=== PATIENT | female | born 1985 | race Caucasian/White ===

== ENCOUNTER 2016-03-16 10:13 | Inpatient (IN) | payer OTHER ==
--- NOTE | 2016-03-16 14:15 | HP ---
COWS - Scale Resting Pulse: 2= ND 101-120 Sweatin= Chills/Flushing Restless Observation: 3= Extraneous Movement Pupil Size: 2= Moderately Dilated Bone or Joint Aches: 4=Acute Joint/Muscle Pain Runny Nose/ Eye Tearin= Nasal Congestion GI Upset > 30mins: 2= Nausea/Diarrhea Tremor Observation: 2= Slight Tremor Visible Yawning Observation: 2= >3x During Session Anxiety or Irritability: 2=Irritable/Anxious Goose Flesh Skin: 0=Smooth Skin COWS Score: 21 Admission ROS BHS - HPI Chief Complaint: DETOX TX FOR HEROIN AND COCAINE DEPENDENCE. Allergies/Adverse Reactions: Allergies Allergy/AdvReac Type Severity Reaction Status Date / Time No Known Allergies Allergy Verified 03/16/16 12:50 History of Present Illness: 30 Y/O FEMALE WITH A HX OF HEROIN AND CRACK DEPENDENCE SEEKING DETOX TX Exam Limitations: No Limitations - Ebola screening Have you traveled outside of the country in the last 21 days: No Have you had contact with anyone from an Ebola affected area: No Have you been sick,other than usual withdrawal symptoms: No Do you have a fever: No - Review of Systems Constitutional: Chills, Loss of Appetite, Night Sweats, Changes in sleep, Unintentional Wgt. Loss EENT: reports: Blurred Vision (WEARS GLASSES), Tearing, Nose Congestion Respiratory: reports: No Symptoms reported Cardiac: reports: Lightheadedness GI: reports: Constipated, Nausea, Poor Appetite, Poor Fluid Intake, Vomiting, Abdominal cramping : reports: Dysuria Musculoskeletal: reports: Back Pain, Joint Pain, Muscle Pain Integumentary: reports: Lesions (FACIAL AND HAND WHEN USING COCAINE.) Neuro: reports: Headache, Dizziness Endocrine: reports: No Symptoms Reported Hematology: reports: No Symptoms Reported Psychiatric: reports: Orientated x3, Anxious, Depressed Other Systems: Reviewed and Negative Patient History - Patient Medical History Hx Anemia: No Hx Asthma: No Hx Chronic Obstructive Pulmonary Disease (COPD): No Hx Cardiac Disorders: No Hx Hypertension: No HX Cerebrovascular Accident: No Hx Seizures: No Hx Diabetes: No Hx Gastrointestinal Disorders: No Hx Genitourinary Disorders: No Hx Sexually Transmitted Disorders: No Hx Renal Disease (ESRD): No Hx Thyroid Disease: No Hx Human Immunodeficiency Virus (HIV): No (NEGATIVE HX) Hx Hepatitis C: No Hx Depression: Yes Hx Suicide Attempt: Yes (Tried to cut wrist in 2013;DENIES CURRENT S/I) Hx Schizophrenia: No - Patient Surgical History Past Surgical History: Yes Hx Neurologic Surgery: No Hx Cataract Extraction: No Hx Cardiac Surgery: No Hx Lung Surgery: No Hx Breast Surgery: No Hx Breast Biopsy: No Hx Abdominal Surgery: No Hx Appendectomy: No Hx Cholecystectomy: No Hx Genitourinary Surgery: No Hx Section: No Hx Orthopedic Surgery: No Hx Hysterectomy: No Other Surgical History: Tonsillectomy at 2005 R inguinal hernia repair as an infant Anesthesia Reaction: No - PPD History Previous Implant?: Yes Documented Results: Negative w/o proof Implanted On Prior [facility] Admission?: No Results: TBD PPD to be Administered?: Yes - Reproductive History Patient is a Female of Child Bearing Age (11 -55 yrs old): Yes Last Menstrual Period: 03/13/16 Patient : No - Smoking Cessation Smoking history: Current every day smoker Have you smoked in the past 12 months: Yes Aproximately how many cigarettes per day: 20 Hx Chewing Tobacco Use: No Initiated information on smoking cessation: Yes 'Breaking Loose' booklet given: 03/16/16 - Substance & Tx. History Hx Alcohol Use: No (DENIES) Hx Substance Use: Yes (HEROIN/COCAINE) Substance Use Type: Cocaine, Heroin Hx Substance Use Treatment: Yes ([place], [place]) - Substances Abused Heroin Route: Injection Frequency: Daily Amount used: 2-10 BAGS Age of first use: 16 Date of Last Use: 03/15/16 Crack Route: Smoking Frequency: Daily Amount used: $80 Age of first use: 30 Date of Last Use: 03/15/16 Family Disease History - Family Disease History Family Disease History: Diabetes: Grandparent (PATERNAL GF-), Heart Disease: Brother (ARRYTHMIA) Admission Physical Exam BHS - Vital Signs Vital Signs: Vital Signs - 24 hr 03/16/16 10:57 Temperature 97.8 F Pulse Rate 118 H Respiratory 18 Rate Blood Pressure 106/66 - Physical General Appearance: Yes: Moderate Distress, Irritable, Anxious HEENTM: Yes: EOMI, Normocephalic, KORIN, Nasal Congestion, Rhinorrhea Respiratory: Yes: Chest Non-Tender, Lungs Clear, Normal Breath Sounds, No Respiratory Distress Neck: Yes: Supple, Trachea in good position Breast: Yes: Breast Exam Deferred Cardiology: Yes: Regular Rhythm, Regular Rate, S1, S2 Abdominal: Yes: Normal Bowel Sounds, Non Tender, Flat, Soft Genitourinary: Yes: Other (N/C) Back: Yes: Within Normal Limits Musculoskeletal: Yes: full range of Motion, Gait Steady Extremities: Yes: Normal Range of Motion, Non-Tender, Tremors 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: 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: 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 NML intact, Fully Oriented, Alert Integumentary: Yes: Dry, Warm, Rash (FACE HANDS--PICKING DUE TO COCAINE RASH ERUPTIONS.), Track Lopes (BOTH ELBOWS) Lymphatic: Yes: Within Normal Limits - Diagnostic (1) Opioid dependence with withdrawal Current Visit: Yes Status: Acute (2) Cocaine dependence, uncomplicated Current Visit: Yes Status: Acute (3) Rash and nonspecific skin eruption Current Visit: Yes Status: Deleted Comment: FACE AND HAND PICKING AFTER COCAINE USE RASH ERUPTION Cleared for Admission [facility] - Detox or Rehab [facility] Level of Care: Medically Managed Detox Regimen/Protocol: Methadone [facility] Breath Alcohol Content Breath Alcohol Content: 0 Urine Pregancy Test - Result Urine Test Results: Negative- NO Line Present Urine Drug Screen - Results Drug Screen Negative: No Urine Drug Screen Results: THC-Marijuana, YOLA-Cocaine, OPI-Opiates
[2016-03-16] MEDS ORDERED: LOPERAMIDE HCL 2 MG CAPSULE PO PRN (14:32)
[2016-03-16] MEDS ORDERED: MAGNESIUM CITRATE 300 ML BOTTLE PO PRN (14:32)
[2016-03-16] MEDS ORDERED: MAG HYDROX/AL HYDROX/SIMETH 30 ML UNIT-DOSE CUP PO PRN (14:32)
[2016-03-16] MEDS ORDERED: P-EPHED 60MG/TRIPROLIDI 2.5MG TABLET PO PRN (14:32)
[2016-03-16] MEDS ORDERED: NICOTINE POLACRILEX 4 MG GUM BUC PRN (14:32)
[2016-03-16] MEDS ORDERED: guaiFENesin/D-METHORPHAN HB 10 ML UNIT-DOSE CUPS PO PRN (14:32)
[2016-03-16] MEDS ORDERED: MAGNESIUM HYDROX 2400MG/30ML ORAL SUSPENSION 30 ML CUP PO PRN (14:32)
[2016-03-16] MEDS ORDERED: MENTHOL/PHENOL 1 EACH UD MM PRN (14:32)
[2016-03-16] MEDS ORDERED: METHADONE HCL 10 MG TABLET (FOR DETOX USE ONLY) PO ONE ×2 (14:39→23:00)
[2016-03-16] MEDS ORDERED: ACETAMINOPHEN 325 MG TABLET (FP) PO PRN (14:41)
[2016-03-16] MEDS: diazePAM 5 MG TABLET PO PRN ×2 (15:53→20:10)
[2016-03-16] MEDS: NICOTINE 21 MG/24 HOURS TOPICAL PATCH TD SCH (15:56)
[2016-03-16 17:28] LABS: URINE APPEARANCE TURBID; URINE BILIRUBIN NEGATIVE (NEGATIVE); URINE COLOR GREEN; URINE GLUCOSE (UA) NEGATIVE (NEGATIVE); URINE KETONE NEGATIVE (NEGATIVE); URINE LEUK ESTERASE NEGATIVE (NEGATIVE); URINE NITRITE NEGATIVE (NEGATIVE); URINE UROBILINOGEN NEGATIVE E.U./dl (0.2-1.0)
[2016-03-16 17:35] LABS: URINE BLOOD 2+ (NEGATIVE); URINE PROTEIN 2+ (NEGATIVE)
[2016-03-16 17:57] LABS: URINE MUCUS MANY; URINE RBC 18 /hpf (0-3)
[2016-03-16] MEDS: THIAMINE HCL 100 MG TABLET (FP) PO SCH (22:10)
[2016-03-16] MEDS: BACITRACIN 0.9 GM PACKET TP SCH (22:10)
[2016-03-17] MEDS: diazePAM 5 MG TABLET PO PRN ×2 (03:06→10:41)
[2016-03-17] MEDS ORDERED: METHADONE HCL 10 MG TABLET (FOR DETOX USE ONLY) PO ONE (10:00)
[2016-03-17] MEDS: hydrOXYzine PAMOATE 25 MG CAPSULE (FP) PO PRN (10:41)
[2016-03-17] MEDS: BACITRACIN 0.9 GM PACKET TP SCH ×2 (10:41→22:11)
[2016-03-17] MEDS: PRENATAL VITAMINS W/ FOLIC ACID TABLET (FP) PO SCH (10:41)
[2016-03-17] MEDS: NICOTINE 21 MG/24 HOURS TOPICAL PATCH TD SCH (10:42)
[2016-03-17 11:07] LABS: MCH 30.7 pg (25.7-33.7); MCHC 34.2 g/dl (32.0-36.0); MEAN CELL VOLUME 89.9 fl (80-96); PLATELET COUNT 197 K/MM3 (134-434); RDW 13.4 % (11.6-15.6); WHITE BLOOD COUNT 9.2 K/mm3 (4.0-10.0)
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
[2016-03-17 11:39] LABS: ALBUMIN 4.3 g/dl (3.4-5.0); ANION GAP 8 (8-16); BILIRUBIN,TOTAL 0.7 mg/dL (0.2-1.0); CALCIUM 8.8 mg/dL (8.5-10.1); CO2 28 mmol/L (21-32); CREATININE 0.9 mg/dL (0.55-1.02); GLUCOSE,RANDOM 98 mg/dL (74-106); SGOT/AST 17 U/L (15-37); SGPT/ALT 20 U/L (12-78); TOT PROT 7.6 g/dl (6.4-8.2)
[2016-03-17 11:40] LABS: ALK PHOS 43 U/L (45-117)
[2016-03-17 12:13] LABS: HIV 1 & 2 AB NEGATIVE; HIV 1 AGp24 NEGATIVE
--- NOTE | 2016-03-17 12:56 | PN ---
S COWS - Scale Resting Pulse: 1= [place] 81-100 Sweatin= Chills/Flushing Restless Observation: 1= Difficult to Sit Still Pupil Size: 1= Pupils >than Normal Bone or Joint Aches: 2= Severe Diffuse Aches Runny Nose/ Eye Tearin= Nasal Congestion GI Upset > 30mins: 2= Nausea/Diarrhea Tremor Observation of Outstretched Hands: 2= Slight Tremor Visible Yawning Observation: 1= 1-2x During Session Anxiety or Irritability: 2=Irritable/Anxious Goose Flesh Skin: 3=Piloerection COWS Score: 17 BHS Progress Note (SOAP) Subjective: nausea, sweats, interrupte dsleep, anxiety, tremors, goosebumps, would like baclofen for back pain,has prescription Objective: 03/17/16 12:55 Vital Signs - 8 hr 03/17/16 03/17/16 06:18 09:55 Temperature 98.1 F 96.8 F L Pulse Rate 117 H 95 H Respiratory 20 20 Rate Blood Pressure 131/72 114/70 Laboratory Tests 03/16/16 03/17/16 03/17/16 16:00 06:10 06:10 WBC 9.2 RBC 4.52 Hgb 13.9 Hct 40.6 MCV 89.9 MCHC 34.2 RDW 13.4 Plt Count 197 MPV 9.0 Sodium Potassium Chloride Carbon Dioxide Anion Gap BUN Creatinine Creat Clearance w eGFR Random Glucose Calcium Total Bilirubin AST ALT Alkaline Phosphatase Total Protein Albumin Urine Color Green Urine Appearance Turbid Urine pH 8.0 Ur Specific [place] 1.023 Urine Protein 2+ H Urine Glucose (UA) Negative Urine Ketones Negative Urine Blood 2+ H Urine Nitrite Negative Urine Bilirubin Negative Urine Urobilinogen Negative Ur Leukocyte Esterase Negative Urine RBC 18 Urine WBC None Urine Mucus Many HIV 1&2 Antibody Screen Negative HIV P24 Antigen Negative 03/17/16 06:10 WBC RBC Hgb Hct MCV MCHC RDW Plt Count MPV Sodium 141 Potassium 3.3 L Chloride 105 Carbon Dioxide 28 Anion Gap 8 BUN 15 Creatinine 0.9 Creat Clearance w eGFR > 60 Random Glucose 98 Calcium 8.8 Total Bilirubin 0.7 AST 17 ALT 20 Alkaline Phosphatase 43 L Total Protein 7.6 Albumin 4.3 Urine Color Urine Appearance Urine pH Ur Specific [place] Urine Protein Urine Glucose (UA) Urine Ketones Urine Blood Urine Nitrite Urine Bilirubin Urine Urobilinogen Ur Leukocyte Esterase Urine RBC Urine WBC Urine Mucus HIV 1&2 Antibody Screen HIV P24 Antigen hypokalemia Assessment: 03/17/16 12:56 withdrawal sx, back pain, low k, abnormal u/a Plan: cont detox, start baclofen, repeat u/a, supplement k, repeat chem
[2016-03-17] MEDS ORDERED: METHYLPHENIDATE HCL 5 MG TABLET PO SCH (14:00)
[2016-03-17] MEDS: SERTRALINE HCL 50 MG TABLET (FP) PO SCH (14:28)
[2016-03-17] MEDS: GABAPENTIN 300 MG CAPSULE (FP) PO SCH ×2 (14:28→22:12)
[2016-03-17] MEDS: METHYLPHENIDATE HCL 5 MG TABLET PO SCH ×2 (14:28→22:11)
[2016-03-17] MEDS: BACLOFEN 10 MG TABLET (FP) PO SCH ×2 (15:32→22:12)
[2016-03-17 19:01] LABS: URINE APPEARANCE SLCLOUDY; URINE BILIRUBIN NEGATIVE (NEGATIVE); URINE COLOR YELLOW; URINE GLUCOSE (UA) NEGATIVE (NEGATIVE); URINE KETONE TRACE (NEGATIVE); URINE NITRITE NEGATIVE (NEGATIVE); URINE PROTEIN NEGATIVE (NEGATIVE); URINE UROBILINOGEN NEGATIVE E.U./dl (0.2-1.0)
[2016-03-17 19:13] LABS: URINE BLOOD 2+ (NEGATIVE); URINE LEUK ESTERASE 1+ (NEGATIVE)
[2016-03-17 19:15] LABS: URINE MUCUS RARE; URINE RBC 53 /hpf (0-3); URINE WBC 9 /hpf (3-5)
[2016-03-17] MEDS: POTASSIUM CHLORIDE TABS 20 MEQ TABLET.ER (FP) PO SCH (22:12)
[2016-03-17] MEDS: THIAMINE HCL 100 MG TABLET (FP) PO SCH (22:14)
[2016-03-18] MEDS: diazePAM 5 MG TABLET PO PRN ×2 (02:26→10:25)
[2016-03-18] MEDS: BACLOFEN 10 MG TABLET (FP) PO SCH ×3 (06:08→22:03)
[2016-03-18] MEDS: GABAPENTIN 300 MG CAPSULE (FP) PO SCH ×3 (06:08→22:03)
[2016-03-18] MEDS: METHYLPHENIDATE HCL 5 MG TABLET PO SCH ×3 (07:37→22:03)
[2016-03-18] MEDS ORDERED: METHADONE HCL 5 MG TABLET (FOR DETOX USE ONLY) PO ONE (10:00)
--- NOTE | 2016-03-18 10:05 | PN ---
BHS COWS - Scale Resting Pulse: 1= [place] 81-100 Sweatin= Chills/Flushing Restless Observation: 1= Difficult to Sit Still Pupil Size: 1= Pupils >than Normal Bone or Joint Aches: 1= Mild Discomfort Runny Nose/ Eye Tearin= Nasal Congestion GI Upset > 30mins: 1= Stomach Cramp Tremor Observation of Outstretched Hands: 2= Slight Tremor Visible Yawning Observation: 1= 1-2x During Session Anxiety or Irritability: 2=Irritable/Anxious Goose Flesh Skin: 3=Piloerection COWS Score: 15 BHS Progress Note (SOAP) Subjective: nausea, sweats, interrupted sleep,anxiety, tremor, neck pain from lyme disease, requesting increase in baclofen dose Objective: 03/18/16 10:03 Vital Signs - 8 hr 03/18/16 03/18/16 03:30 06:00 Temperature 97.9 F Pulse Rate 76 Respiratory 18 16 Rate Blood Pressure 108/77 Laboratory Tests 03/16/16 03/17/16 03/17/16 16:00 06:10 06:10 WBC 9.2 RBC 4.52 Hgb 13.9 Hct 40.6 MCV 89.9 MCHC 34.2 RDW 13.4 Plt Count 197 MPV 9.0 Sodium Potassium Chloride Carbon Dioxide Anion Gap BUN Creatinine Creat Clearance w eGFR Random Glucose Calcium Total Bilirubin AST ALT Alkaline Phosphatase Total Protein Albumin Urine Color Green Urine Appearance Turbid Urine pH 8.0 Ur Specific [place] 1.023 Urine Protein 2+ H Urine Glucose (UA) Negative Urine Ketones Negative Urine Blood 2+ H Urine Nitrite Negative Urine Bilirubin Negative Urine Urobilinogen Negative Ur Leukocyte Esterase Negative Urine RBC 18 Urine WBC None Ur Epithelial Cells Urine Mucus Many HIV 1&2 Antibody Screen Negative HIV P24 Antigen Negative 03/17/16 03/17/16 06:10 17:00 WBC RBC Hgb Hct MCV MCHC RDW Plt Count MPV Sodium 141 Potassium 3.3 L Chloride 105 Carbon Dioxide 28 Anion Gap 8 BUN 15 Creatinine 0.9 Creat Clearance w eGFR > 60 Random Glucose 98 Calcium 8.8 Total Bilirubin 0.7 AST 17 ALT 20 Alkaline Phosphatase 43 L Total Protein 7.6 Albumin 4.3 Urine Color Yellow Urine Appearance Slcloudy Urine pH 5.0 D Ur Specific [place] 1.029 Urine Protein Negative Urine Glucose (UA) Negative Urine Ketones Trace H Urine Blood 2+ H Urine Nitrite Negative Urine Bilirubin Negative Urine Urobilinogen Negative Ur Leukocyte Esterase 1+ H Urine RBC 53 Urine WBC 9 Ur Epithelial Cells Rare Urine Mucus Rare HIV 1&2 Antibody Screen HIV P24 Antigen hypokalemia Assessment: 03/18/16 10:04 withdrawal sx, neck pain from lyme disease, hypkalemia Plan: cont detox, supplement k, repeat K, fluids, increase baclofen as requested,
[2016-03-18] MEDS: POTASSIUM CHLORIDE TABS 20 MEQ TABLET.ER (FP) PO SCH ×2 (10:25→22:03)
[2016-03-18] MEDS: PRENATAL VITAMINS W/ FOLIC ACID TABLET (FP) PO SCH (10:25)
[2016-03-18] MEDS: BACITRACIN 0.9 GM PACKET TP SCH ×2 (10:25→22:02)
[2016-03-18] MEDS: SERTRALINE HCL 50 MG TABLET (FP) PO SCH (10:25)
[2016-03-18] MEDS: NICOTINE 21 MG/24 HOURS TOPICAL PATCH TD SCH (10:26)
[2016-03-18 10:54] LABS: CALCIUM 8.5 mg/dL (8.5-10.1); CREATININE 0.8 mg/dL (0.55-1.02)
[2016-03-18] MEDS: THIAMINE HCL 100 MG TABLET (FP) PO SCH (22:02)
[2016-03-19] MEDS: GABAPENTIN 300 MG CAPSULE (FP) PO SCH ×3 (07:24→22:08)
[2016-03-19] MEDS: METHYLPHENIDATE HCL 5 MG TABLET PO SCH ×2 (08:00→17:31)
[2016-03-19] MEDS: BACLOFEN 10 MG TABLET (FP) PO SCH ×3 (08:30→22:09)
[2016-03-19] MEDS ORDERED: METHADONE HCL 5 MG TABLET (FOR DETOX USE ONLY) PO ONE (10:00)
--- NOTE | 2016-03-19 10:00 | PN ---
BHS Progress Note (SOAP) Subjective: interrupted sleep, sweats , nausea, diarrhea , lbp Objective: 03/19/16 10:00 Vital Signs Temperature 99.5 F 03/19/16 06:00 Pulse Rate 71 03/19/16 06:00 Respiratory Rate 16 03/19/16 06:00 Blood Pressure 110/73 03/19/16 06:00 O2 Sat by Pulse Oximetry (%) Laboratory Tests 03/16/16 03/17/16 03/17/16 16:00 06:10 06:10 WBC 9.2 RBC 4.52 Hgb 13.9 Hct 40.6 MCV 89.9 MCHC 34.2 RDW 13.4 Plt Count 197 MPV 9.0 Sodium Potassium Chloride Carbon Dioxide Anion Gap BUN Creatinine Creat Clearance w eGFR Random Glucose Calcium Total Bilirubin AST ALT Alkaline Phosphatase Total Protein Albumin Urine Color Green Urine Appearance Turbid Urine pH 8.0 Ur Specific [place] 1.023 Urine Protein 2+ H Urine Glucose (UA) Negative Urine Ketones Negative Urine Blood 2+ H Urine Nitrite Negative Urine Bilirubin Negative Urine Urobilinogen Negative Ur Leukocyte Esterase Negative Urine RBC 18 Urine WBC None Ur Epithelial Cells Urine Mucus Many RPR Titer HIV 1&2 Antibody Screen Negative HIV P24 Antigen Negative 03/17/16 03/17/16 03/17/16 06:10 06:10 17:00 WBC RBC Hgb Hct MCV MCHC RDW Plt Count MPV Sodium 141 Potassium 3.3 L Chloride 105 Carbon Dioxide 28 Anion Gap 8 BUN 15 Creatinine 0.9 Creat Clearance w eGFR > 60 Random Glucose 98 Calcium 8.8 Total Bilirubin 0.7 AST 17 ALT 20 Alkaline Phosphatase 43 L Total Protein 7.6 Albumin 4.3 Urine Color Yellow Urine Appearance Slcloudy Urine pH 5.0 D Ur Specific [place] 1.029 Urine Protein Negative Urine Glucose (UA) Negative Urine Ketones Trace H Urine Blood 2+ H Urine Nitrite Negative Urine Bilirubin Negative Urine Urobilinogen Negative Ur Leukocyte Esterase 1+ H Urine RBC 53 Urine WBC 9 Ur Epithelial Cells Rare Urine Mucus Rare RPR Titer Nonreactive HIV 1&2 Antibody Screen HIV P24 Antigen 03/18/16 07:45 WBC RBC Hgb Hct MCV MCHC RDW Plt Count MPV Sodium 140 Potassium 4.2 D Chloride 103 Carbon Dioxide 30 Anion Gap 7 L BUN 10 D Creatinine 0.8 Creat Clearance w eGFR Random Glucose 95 Calcium 8.5 Total Bilirubin AST ALT Alkaline Phosphatase Total Protein Albumin Urine Color Urine Appearance Urine pH Ur Specific [place] Urine Protein Urine Glucose (UA) Urine Ketones Urine Blood Urine Nitrite Urine Bilirubin Urine Urobilinogen Ur Leukocyte Esterase Urine RBC Urine WBC Ur Epithelial Cells Urine Mucus RPR Titer HIV 1&2 Antibody Screen HIV P24 Antigen 03/19/16 10:01 pt aox3 in nad ambulating Assessment: 03/19/16 10:01 withdrawl sx's abn u/a 2nd menses Plan: cont. detox increase fluids motrin prn
[2016-03-19] MEDS: SERTRALINE HCL 50 MG TABLET (FP) PO SCH (10:06)
[2016-03-19] MEDS: BACITRACIN 0.9 GM PACKET TP SCH ×2 (10:06→22:08)
[2016-03-19] MEDS: POTASSIUM CHLORIDE TABS 20 MEQ TABLET.ER (FP) PO SCH ×2 (10:06→22:08)
[2016-03-19] MEDS: PRENATAL VITAMINS W/ FOLIC ACID TABLET (FP) PO SCH (10:06)
[2016-03-19] MEDS: NICOTINE 21 MG/24 HOURS TOPICAL PATCH TD SCH (10:07)
[2016-03-19] MEDS: IBUPROFEN 400 MG TABLET (FP) PO PRN (10:09)
[2016-03-19] MEDS: diazePAM 5 MG TABLET PO PRN ×2 (10:09→14:06)
--- NOTE | 2016-03-19 12:24 | PN ---
[facility] Progress Note Note: Psychiatry Attending's note: Met with with patient at her request. Issue :modification of ritalin's schedule. Medications reviewed.Noted order for ritalin 20 mg po tid. Ms Sosa requests that ritalin be dispensed earlier than bedtime. Complains of insomnia. Intervention : .Ritalin 20 mg po tid @ 7 am + 12 N + 5 pm. .Side effects/benefits discussed with patient. Patient is in agreement with this plan.Nursing staff made aware.
--- NOTE | 2016-03-19 12:47 | EKG ---
Test Reason : Blood Pressure : / mmHG Vent. Rate : 093 BPM Atrial Rate : 093 BPM P-R Int : 134 ms QRS Dur : 082 ms QT Int : 362 ms P-R-T Axes : 059 057 044 degrees QTc Int : 450 ms NORMAL SINUS RHYTHM NORMAL ECG NO PREVIOUS ECGS AVAILABLE Confirmed by CHOLO VILLALTA MD ([id number]) on 03/19/2016 12:47:45 PM Referred By: Confirmed By:CHOLO VILLALTA MD
[2016-03-19] MEDS ORDERED: METHYLPHENIDATE HCL 5 MG TABLET PO ONE (14:45)
[2016-03-19] MEDS ORDERED: ZOLPIDEM TARTRATE 5 MG TABLET PO PRN (22:00)
[2016-03-19] MEDS: THIAMINE HCL 100 MG TABLET (FP) PO SCH (22:10)
[2016-03-20] MEDS: GABAPENTIN 300 MG CAPSULE (FP) PO SCH ×3 (05:37→21:33)
[2016-03-20] MEDS: BACLOFEN 10 MG TABLET (FP) PO SCH ×3 (05:37→21:34)
[2016-03-20] MEDS: METHYLPHENIDATE HCL 5 MG TABLET PO SCH ×2 (07:15→11:15)
[2016-03-20] MEDS: IBUPROFEN 400 MG TABLET (FP) PO PRN (07:36)
--- NOTE | 2016-03-20 09:36 | PN ---
BHS Progress Note (SOAP) Subjective: agitation anxiety interrupted sleep sweats Objective: 03/20/16 09:32 Vital Signs Temperature 98.1 F 03/20/16 09:30 Pulse Rate 79 03/20/16 09:30 Respiratory Rate 18 03/20/16 09:30 Blood Pressure 105/66 03/20/16 09:30 O2 Sat by Pulse Oximetry (%) Laboratory Tests 03/16/16 03/17/16 03/17/16 16:00 06:10 06:10 WBC 9.2 RBC 4.52 Hgb 13.9 Hct 40.6 MCV 89.9 MCHC 34.2 RDW 13.4 Plt Count 197 MPV 9.0 Sodium Potassium Chloride Carbon Dioxide Anion Gap BUN Creatinine Creat Clearance w eGFR Random Glucose Calcium Total Bilirubin AST ALT Alkaline Phosphatase Total Protein Albumin Urine Color Green Urine Appearance Turbid Urine pH 8.0 Ur Specific [place] 1.023 Urine Protein 2+ H Urine Glucose (UA) Negative Urine Ketones Negative Urine Blood 2+ H Urine Nitrite Negative Urine Bilirubin Negative Urine Urobilinogen Negative Ur Leukocyte Esterase Negative Urine RBC 18 Urine WBC None Ur Epithelial Cells Urine Mucus Many RPR Titer HIV 1&2 Antibody Screen Negative HIV P24 Antigen Negative 03/17/16 03/17/16 03/17/16 06:10 06:10 17:00 WBC RBC Hgb Hct MCV MCHC RDW Plt Count MPV Sodium 141 Potassium 3.3 L Chloride 105 Carbon Dioxide 28 Anion Gap 8 BUN 15 Creatinine 0.9 Creat Clearance w eGFR > 60 Random Glucose 98 Calcium 8.8 Total Bilirubin 0.7 AST 17 ALT 20 Alkaline Phosphatase 43 L Total Protein 7.6 Albumin 4.3 Urine Color Yellow Urine Appearance Slcloudy Urine pH 5.0 D Ur Specific [place] 1.029 Urine Protein Negative Urine Glucose (UA) Negative Urine Ketones Trace H Urine Blood 2+ H Urine Nitrite Negative Urine Bilirubin Negative Urine Urobilinogen Negative Ur Leukocyte Esterase 1+ H Urine RBC 53 Urine WBC 9 Ur Epithelial Cells Rare Urine Mucus Rare RPR Titer Nonreactive HIV 1&2 Antibody Screen HIV P24 Antigen 03/18/16 07:45 WBC RBC Hgb Hct MCV MCHC RDW Plt Count MPV Sodium 140 Potassium 4.2 D Chloride 103 Carbon Dioxide 30 Anion Gap 7 L BUN 10 D Creatinine 0.8 Creat Clearance w eGFR Random Glucose 95 Calcium 8.5 Total Bilirubin AST ALT Alkaline Phosphatase Total Protein Albumin Urine Color Urine Appearance Urine pH Ur Specific [place] Urine Protein Urine Glucose (UA) Urine Ketones Urine Blood Urine Nitrite Urine Bilirubin Urine Urobilinogen Ur Leukocyte Esterase Urine RBC Urine WBC Ur Epithelial Cells Urine Mucus RPR Titer HIV 1&2 Antibody Screen HIV P24 Antigen awake/alert ambulating no acute distress Assessment: 03/20/16 09:36 withdrawal sx Plan: continue detox increase fluids d/c in am
[2016-03-20] MEDS ORDERED: METHADONE HCL 10 MG TABLET (FOR DETOX USE ONLY) PO ONE (10:00)
[2016-03-20] MEDS: POTASSIUM CHLORIDE TABS 20 MEQ TABLET.ER (FP) PO SCH (10:10)
[2016-03-20] MEDS: PRENATAL VITAMINS W/ FOLIC ACID TABLET (FP) PO SCH (10:10)
[2016-03-20] MEDS: BACITRACIN 0.9 GM PACKET TP SCH ×2 (10:10→21:33)
[2016-03-20] MEDS: SERTRALINE HCL 50 MG TABLET (FP) PO SCH (10:10)
[2016-03-20] MEDS: NICOTINE 21 MG/24 HOURS TOPICAL PATCH TD SCH (10:11)
[2016-03-20 15:22] VITALS: BMI 21.9
--- NOTE | 2016-03-20 20:05 | PN ---
BHS Progress Note Note: k+ 4.2 discontinue potassium supplement
[2016-03-20] MEDS: THIAMINE HCL 100 MG TABLET (FP) PO SCH (21:34)
[2016-03-21] MEDS ORDERED: METHADONE HCL 5 MG TABLET (FOR DETOX USE ONLY) PO ONE (06:00)
[2016-03-21] MEDS: GABAPENTIN 300 MG CAPSULE (FP) PO SCH ×3 (06:43→21:36)
[2016-03-21] MEDS: BACLOFEN 10 MG TABLET (FP) PO SCH ×3 (06:44→21:36)
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
[2016-03-21] MEDS: NICOTINE 21 MG/24 HOURS TOPICAL PATCH TD SCH (10:46)
[2016-03-21] MEDS: BACITRACIN 0.9 GM PACKET TP SCH ×2 (10:46→21:35)
[2016-03-21] MEDS: PRENATAL VITAMINS W/ FOLIC ACID TABLET (FP) PO SCH (10:47)
[2016-03-21] MEDS: SERTRALINE HCL 50 MG TABLET (FP) PO SCH (10:48)
[2016-03-21] MEDS: DULoxetine HCL 30 MG CAPSULE.DR (FP) PO SCH (11:00)
[2016-03-21] MEDS: diphenhydrAMINE HCL 50 MG CAPSULE PO PRN (21:35)
[2016-03-21] MEDS: THIAMINE HCL 100 MG TABLET (FP) PO SCH (21:36)
[2016-03-21] MEDS: BENZOYL PEROXIDE 5% 60 GM GEL..GRAM. TP SCH (23:07)
[2016-03-22] MEDS: GABAPENTIN 300 MG CAPSULE (FP) PO SCH ×3 (06:23→21:40)
[2016-03-22] MEDS: IBUPROFEN 400 MG TABLET (FP) PO PRN ×2 (06:24→20:13)
[2016-03-22] MEDS: BACLOFEN 10 MG TABLET (FP) PO SCH ×3 (06:24→21:40)
[2016-03-22] MEDS: PRENATAL VITAMINS W/ FOLIC ACID TABLET (FP) PO SCH (10:43)
[2016-03-22] MEDS: NICOTINE 21 MG/24 HOURS TOPICAL PATCH TD SCH (10:43)
[2016-03-22] MEDS: BACITRACIN 0.9 GM PACKET TP SCH ×2 (10:44→21:40)
[2016-03-22] MEDS: BENZOYL PEROXIDE 5% 60 GM GEL..GRAM. TP SCH ×2 (10:44→21:42)
[2016-03-22] MEDS: DULoxetine HCL 30 MG CAPSULE.DR (FP) PO SCH (10:44)
[2016-03-22] MEDS: hydrOXYzine PAMOATE 25 MG CAPSULE (FP) PO PRN (17:51)
[2016-03-22] MEDS: THIAMINE HCL 100 MG TABLET (FP) PO SCH (21:40)
[2016-03-22] MEDS: diphenhydrAMINE HCL 50 MG CAPSULE PO PRN (21:41)
[2016-03-23] MEDS: GABAPENTIN 300 MG CAPSULE (FP) PO SCH ×3 (06:30→21:39)
[2016-03-23] MEDS: BACLOFEN 10 MG TABLET (FP) PO SCH ×3 (06:30→21:39)
[2016-03-23] MEDS ORDERED: PT OWN MED DRAWER 7, Y5N ONE (08:28)
[2016-03-23] MEDS: NICOTINE 21 MG/24 HOURS TOPICAL PATCH TD SCH (10:41)
[2016-03-23] MEDS: DULoxetine HCL 30 MG CAPSULE.DR (FP) PO SCH (10:42)
[2016-03-23] MEDS: PRENATAL VITAMINS W/ FOLIC ACID TABLET (FP) PO SCH (10:42)
[2016-03-23] MEDS: BACITRACIN 0.9 GM PACKET TP SCH ×2 (10:43→21:39)
[2016-03-23] MEDS: BENZOYL PEROXIDE 5% 60 GM GEL..GRAM. TP SCH ×2 (10:43→21:39)
[2016-03-23] MEDS: IBUPROFEN 400 MG TABLET (FP) PO PRN (13:31)
[2016-03-23] MEDS: ATOMOXETINE HCL 25 MG CAPSULE PO SCH (19:28)
[2016-03-23] MEDS: THIAMINE HCL 100 MG TABLET (FP) PO SCH (21:40)
[2016-03-23] MEDS: diphenhydrAMINE HCL 50 MG CAPSULE PO PRN (21:41)
[2016-03-24] MEDS: GABAPENTIN 300 MG CAPSULE (FP) PO SCH (06:24)
[2016-03-24] MEDS: BACLOFEN 10 MG TABLET (FP) PO SCH (06:24)
[2016-03-24 07:22] VITALS: BP 106/72; PULSE 76; TEMP 98.7
[2016-03-24] MEDS: BACITRACIN 0.9 GM PACKET TP SCH (09:28)
[2016-03-24] MEDS: NICOTINE 21 MG/24 HOURS TOPICAL PATCH TD SCH (09:28)
[2016-03-24] MEDS: DULoxetine HCL 30 MG CAPSULE.DR (FP) PO SCH (09:29)
[2016-03-24] MEDS: ATOMOXETINE HCL 25 MG CAPSULE PO SCH (09:30)
[2016-03-24] MEDS: PRENATAL VITAMINS W/ FOLIC ACID TABLET (FP) PO SCH (09:31)
[2016-03-24] MEDS: BENZOYL PEROXIDE 5% 60 GM GEL..GRAM. TP SCH (10:26)
--- NOTE | 2016-04-07 19:24 | DS ---
[facility] Detox Discharge Summary Admission Date: 03/16/16 Discharge Date: 03/20/16 - History Present History: Cocaine Dependence, Opioid Dependence Pertinent Past History: ADHD - Physical Exam Results Vital Signs: Vital Signs Temperature 98.7 F 03/24/16 07:21 Pulse Rate 76 03/24/16 07:21 Respiratory Rate 16 03/24/16 07:21 Blood Pressure 106/72 03/24/16 07:21 O2 Sat by Pulse Oximetry (%) Pertinent Admission Physical Exam Findings: Withdrawal sx. Laboratory Last Values WBC 9.2 K/mm3 (4.0-10.0) 03/17/16 06:10 RBC 4.52 M/mm3 (3.60-5.2) 03/17/16 06:10 Hgb 13.9 GM/dL (10.7-15.3) 03/17/16 06:10 Hct 40.6 % (32.4-45.2) 03/17/16 06:10 MCV 89.9 fl (80-96) 03/17/16 06:10 MCHC 34.2 g/dl (32.0-36.0) 03/17/16 06:10 RDW 13.4 % (11.6-15.6) 03/17/16 06:10 Plt Count 197 K/MM3 (134-434) 03/17/16 06:10 MPV 9.0 fl (7.5-11.1) 03/17/16 06:10 Sodium 140 mmol/L (136-145) 03/18/16 07:45 Potassium 4.2 mmol/L (3.5-5.1) D 03/18/16 07:45 Chloride 103 mmol/L (98-107) 03/18/16 07:45 Carbon Dioxide 30 mmol/L (21-32) 03/18/16 07:45 Anion Gap 7 (8-16) L 03/18/16 07:45 BUN 10 mg/dL (7-18) D 03/18/16 07:45 Creatinine 0.8 mg/dL (0.55-1.02) 03/18/16 07:45 Creat Clearance w eGFR > 60 (>60) 03/17/16 06:10 Random Glucose 95 mg/dL (74-106) 03/18/16 07:45 Calcium 8.5 mg/dL (8.5-10.1) 03/18/16 07:45 Total Bilirubin 0.7 mg/dL (0.2-1.0) 03/17/16 06:10 AST 17 U/L (15-37) 03/17/16 06:10 ALT 20 U/L (12-78) 03/17/16 06:10 Alkaline Phosphatase 43 U/L (45-117) L 03/17/16 06:10 Total Protein 7.6 g/dl (6.4-8.2) 03/17/16 06:10 Albumin 4.3 g/dl (3.4-5.0) 03/17/16 06:10 Urine Color Yellow 03/17/16 17:00 Urine Appearance Slcloudy 03/17/16 17:00 Urine pH 5.0 (5.0-8.0) D 03/17/16 17:00 Ur Specific [place] 1.029 (1.001-1.035) 03/17/16 17:00 Urine Protein Negative (NEGATIVE) 03/17/16 17:00 Urine Glucose (UA) Negative (NEGATIVE) 03/17/16 17:00 Urine Ketones Trace (NEGATIVE) H 03/17/16 17:00 Urine Blood 2+ (NEGATIVE) H 03/17/16 17:00 Urine Nitrite Negative (NEGATIVE) 03/17/16 17:00 Urine Bilirubin Negative (NEGATIVE) 03/17/16 17:00 Urine Urobilinogen Negative E.U./dl (0.2-1.0) 03/17/16 17:00 Ur Leukocyte Esterase 1+ (NEGATIVE) H 03/17/16 17:00 Urine RBC 53 /hpf (0-3) 03/17/16 17:00 Urine WBC 9 /hpf (3-5) 03/17/16 17:00 Ur Epithelial Cells Rare /hpf (FEW) 03/17/16 17:00 Urine Mucus Rare 03/17/16 17:00 RPR Titer Nonreactive (NONREACTIVE) 03/17/16 06:10 HIV 1&2 Antibody Screen Negative 03/17/16 06:10 HIV P24 Antigen Negative 03/17/16 06:10 labs noted - Treatment Hospital Course: Detox Protocol Followed, Detoxed Safely, Responded well, Discharged Condition Good, Rehab Referral Accepted - Medication Discharge Medications: Ambulatory Orders Baclofen 10 mg PO TID 03/16/16 Gabapentin 400 mg PO TID #90 capsule 03/17/16 Gabapentin 800 mg PO TID #90 tablet 03/17/16 Sertraline HCl [Zoloft -] 150 mg PO DAILY #90 tablet 03/17/16 Atomoxetine HCl [Strattera -] 50 mg PO DAILY #120 capsule 03/24/16 Duloxetine HCl [Cymbalta -] 90 mg PO DAILY #90 capsule. 03/24/16 Gabapentin [Neurontin -] 1,200 mg PO Q8H #120 03/24/16 Gabapentin [Neurontin -] 1,200 mg PO TID #120 capsule 03/24/16 - Diagnosis (1) Opioid dependence with withdrawal Status: Acute (2) ADHD (attention deficit hyperactivity disorder) Status: Chronic (3) Cocaine dependence, uncomplicated Status: Chronic (4) Nicotine dependence Status: Chronic (5) OCD (obsessive compulsive disorder) Status: Chronic (6) Mood disorder Status: Acute (7) Bipolar disorder Status: Chronic - AMA Did Patient Leave Against Medical Advice: No
== END 2016-03-24 11:15 | disposition home or self-care (01) | DRG 897 ==
LOC: YASAS 10:13 → Y6N 14:37 → Y3E 03-20 14:10
PROVIDERS: ADMIT Psychiatry & Neurology Psychiatry; ATTEND Psychiatry & Neurology Psychiatry
PROC: HZ2ZZZZ Detoxification Services for Substance Abuse Treatment (ICD-10-PCS; principal; 2016-03-16)
DX: F11.23 Opioid dependence with withdrawal (principal); F14.20 Cocaine dependence, uncomplicated; F33.9 Major depressive disorder, recurrent, unspecified; F17.210 Nicotine dependence, cigarettes, uncomplicated; F39 Unspecified mood [affective] disorder; F90.9 Attention-deficit hyperactivity disorder, unspecified type; F42.9 Obsessive-compulsive disorder, unspecified; F31.9 Bipolar disorder, unspecified; G47.00 Insomnia, unspecified; R12 Heartburn; R82.90 Unspecified abnormal findings in urine; E87.6 Hypokalemia; M54.2 Cervicalgia; G62.9 Polyneuropathy, unspecified; Z86.19 Personal history of other infectious and parasitic diseases; Z91.5 Personal history of self-harm
CPT/HCPCS: 36415; 80048; 80053; 81003; 81015; 85027; 86593; 87389; 93005; 93010; J0475

== ENCOUNTER 2020-04-01 22:52 | Inpatient (IN) | payer OTHER ==
[2020-04-02 00:06] VITALS: BMI 36.8
[2020-04-02] MEDS ORDERED: MAG HYDROX/AL HYDROX/SIMETH 30 ML UNIT-DOSE CUP PO PRN (02:11)
[2020-04-02] MEDS ORDERED: ACETAMINOPHEN 325 MG TABLET (FP) PO PRN ×2 (02:11)
[2020-04-02] MEDS ORDERED: IBUPROFEN 400 MG TABLET (FP) PO PRN (02:11)
[2020-04-02] MEDS ORDERED: ONDANSETRON *ODT* 4 MG TABLET SL PRN (02:11)
[2020-04-02] MEDS ORDERED: NICOTINE POLACRILEX 2 MG GUM BUC PRN (02:11)
[2020-04-02] MEDS ORDERED: MAGNESIUM HYDROX 2400MG/30ML ORAL SUSPENSION 30 ML CUP PO PRN (02:11)
[2020-04-02] MEDS ORDERED: MENTHOL/PHENOL 1 EACH UD MM PRN (02:11)
[2020-04-02] MEDS ORDERED: BISMUTH SUBSALICYLATE 524 MG/30 ML UD PO PRN (02:11)
[2020-04-02] MEDS ORDERED: MAGNESIUM CITRATE 300 ML BOTTLE PO PRN (02:11)
[2020-04-02] MEDS ORDERED: cloNIDine HCL 0.1 MG TABLET PO PRN (02:11)
[2020-04-02] MEDS ORDERED: METHADONE HCL 10 MG TABLET (FOR DETOX USE ONLY) PO ONE (02:11)
[2020-04-02] MEDS ORDERED: METHOCARBAMOL 500 MG TABLET PO PRN (02:11)
[2020-04-02] MEDS ORDERED: PRENATAL VITAMINS W/ FOLIC ACID TABLET (FP) PO SCH (10:00)
[2020-04-02] MEDS ORDERED: NICOTINE 14 MG/24 HOURS TOPICAL PATCH TD SCH (10:00)
[2020-04-02 11:03] VITALS: BP 102/62; PULSE 73; TEMP 97.2
[2020-04-02] MEDS ORDERED: MASKS NR ONE (12:12)
[2020-04-02] MEDS ORDERED: THIAMINE HCL 100 MG TABLET (FP) PO SCH (22:00)
[2020-04-02] MEDS ORDERED: MELATONIN 5 MG TABLETS PO SCH (22:00)
[2020-04-03] MEDS ORDERED: METHADONE (DETOX) 20 MG, METHADONE (DETOX) 5 MG PO ONE (10:00)
[2020-04-04] MEDS ORDERED: METHADONE HCL 10 MG TABLET (FOR DETOX USE ONLY) PO ONE (10:00)
[2020-04-05] MEDS ORDERED: METHADONE (DETOX) 10 MG, METHADONE (DETOX) 5 MG PO ONE (10:00)
[2020-04-06] MEDS ORDERED: METHADONE HCL 10 MG TABLET (FOR DETOX USE ONLY) PO ONE (10:00)
[2020-04-07] MEDS ORDERED: METHADONE HCL 5 MG TABLET (FOR DETOX USE ONLY) PO ONE (06:00)
== END 2020-04-02 13:02 | disposition left against medical advice (07) | DRG 894 ==
LOC: YASAS 22:52 → Y6N 23:17
PROVIDERS: ADMIT Allergy & Immunology; ATTEND Allergy & Immunology
PROC: HZ2ZZZZ Detoxification Services for Substance Abuse Treatment (ICD-10-PCS; principal; 2020-04-01)
DX: F11.23 Opioid dependence with withdrawal (principal); F14.20 Cocaine dependence, uncomplicated; A69.20 Lyme disease, unspecified; F17.210 Nicotine dependence, cigarettes, uncomplicated; F43.10 Post-traumatic stress disorder, unspecified; F31.9 Bipolar disorder, unspecified; F41.9 Anxiety disorder, unspecified; F39 Unspecified mood [affective] disorder; G40.909 Epilepsy, unspecified, not intractable, without status epilepticus; M79.7 Fibromyalgia; S09.8XXA Other specified injuries of head, initial encounter; W07.XXXA Fall from chair, initial encounter; Y93.89 Activity, other specified; Y92.238 Other place in hospital as the place of occurrence of the external cause; Y99.9 Unspecified external cause status
CPT/HCPCS: 70450-TC; 72125-TC; 93005; 93010; C9803; U0003

== ENCOUNTER 2020-06-11 17:42 | Inpatient (IN) | payer OTHER ==
[2020-06-11 19:02] VITALS: BMI 36.6
[2020-06-11] MEDS ORDERED: MAGNESIUM CITRATE 300 ML BOTTLE PO PRN (21:08)
[2020-06-11] MEDS ORDERED: P-EPHED 60MG/TRIPROLIDI 2.5MG TABLET PO PRN (21:08)
[2020-06-11] MEDS ORDERED: NALOXONE HCL 0.4 MG/ML VIAL IM PRN (21:08)
[2020-06-11] MEDS ORDERED: MAGNESIUM HYDROX 2400MG/30ML ORAL SUSPENSION 30 ML CUP PO PRN (21:08)
[2020-06-11] MEDS ORDERED: NALOXONE (NARCAN) HCL 4 MG/0.1 ML SPRAY NS PRN (21:08)
[2020-06-11] MEDS ORDERED: ACETAMINOPHEN 325 MG TABLET (FP) PO PRN ×2 (21:08)
[2020-06-11] MEDS ORDERED: ONDANSETRON *ODT* 4 MG TABLET SL PRN (21:08)
[2020-06-11] MEDS ORDERED: IBUPROFEN 400 MG TABLET (FP) PO PRN (21:08)
[2020-06-11] MEDS ORDERED: NICOTINE POLACRILEX 2 MG GUM BUC PRN (21:08)
[2020-06-11] MEDS ORDERED: guaiFENesin 200 MG/10 ML 10 ML UNIT-DOSE CUPS PO PRN (21:08)
[2020-06-11] MEDS ORDERED: DICYCLOMINE HCL 10 MG CAPSULE PO PRN (21:08)
[2020-06-11] MEDS ORDERED: METHOCARBAMOL 500 MG TABLET PO PRN (21:08)
[2020-06-11] MEDS ORDERED: MENTHOL/PHENOL 1 EACH UD MM PRN (21:08)
[2020-06-11] MEDS ORDERED: BISMUTH SUBSALICYLATE 524 MG/30 ML UD PO PRN (21:08)
[2020-06-11] MEDS ORDERED: MAG HYDROX/AL HYDROX/SIMETH 30 ML UNIT-DOSE CUP PO PRN (21:08)
[2020-06-11] MEDS ORDERED: cloNIDine HCL 0.1 MG TABLET PO ONE (21:11)
[2020-06-11] MEDS ORDERED: THIAMINE HCL 100 MG TABLET (FP) PO SCH (22:00)
[2020-06-11] MEDS ORDERED: MELATONIN 5 MG TABLETS PO SCH (22:00)
[2020-06-11] MEDS: chlordiazePOXIDE HCL 25 MG CAPSULE PO SCH (22:58)
[2020-06-11] MEDS: hydrOXYzine PAMOATE 25 MG CAPSULE (FP) PO SCH (22:58)
[2020-06-12] MEDS: chlordiazePOXIDE HCL 25 MG CAPSULE PO PRN ×3 (01:02→12:43)
[2020-06-12] MEDS ORDERED: METHADONE HCL 40 MG DISPERSABLE TABLET ONE (04:13)
[2020-06-12] MEDS ORDERED: METHADONE HCL 5 MG TABLET ONE (04:13)
[2020-06-12] MEDS: hydrOXYzine PAMOATE 25 MG CAPSULE (FP) PO SCH ×3 (05:12→14:17)
[2020-06-12] MEDS: chlordiazePOXIDE HCL 25 MG CAPSULE PO SCH ×2 (05:12→10:09)
[2020-06-12] MEDS ORDERED: METHADONE HCL 10 MG TABLET PO SCH (06:00)
[2020-06-12] MEDS ORDERED: METHADONE 40 MG, METHADONE 5 MG PO SCH (06:00)
[2020-06-12] MEDS ORDERED: MASKS NR ONE (06:31)
[2020-06-12 09:30] VITALS: BP 111/80; PULSE 78; TEMP 96.7
[2020-06-12] MEDS ORDERED: NICOTINE 14 MG/24 HOURS TOPICAL PATCH TD SCH (10:00)
[2020-06-12] MEDS ORDERED: BACLOFEN 10 MG TABLET (FP) PO SCH (10:00)
[2020-06-12] MEDS ORDERED: PRENATAL VITAMINS W/ FOLIC ACID TABLET (FP) PO SCH (10:00)
[2020-06-12 10:36] LABS: BASO % 1.1 % (0-2.0); EOS % 6.6 % (0-4.5); HEMATOCRIT 37.6 % (32.4-45.2); HEMOGLOBIN 12.8 GM/dL (10.7-15.3); LYMPH % 40.8 % (8-40); MCHC 34.2 g/dl (32.0-36.0); MEAN CELL VOLUME 84.9 fl (80-96); MEAN PLT VOLUME 8.4 fl (7.5-11.1); MONO % 7.3 % (3.8-10.2); NEUT % 44.2 % (42.8-82.8); PLATELET COUNT 368 K/MM3 (134-434); RBC 4.42 M/mm3 (3.60-5.2); RDW 14.8 % (11.6-15.6); WHITE BLOOD COUNT 8.7 K/mm3 (4.0-10.0)
[2020-06-12 10:39] LABS: CALCIUM 9.3 mg/dL (8.5-10.1)
[2020-06-12 10:40] LABS: ALBUMIN 3.8 g/dl (3.4-5.0); BLOOD UREA NITROGEN 7.5 mg/dL (7-18)
[2020-06-12 10:43] LABS: CREATININE 0.9 mg/dL (0.55-1.3)
[2020-06-12 10:45] LABS: TOT PROT 7.1 g/dl (6.4-8.2)
[2020-06-12] MEDS ORDERED: LITHIUM CARBONATE 300 MG CAPSULE PO SCH (12:00)
[2020-06-12] MEDS ORDERED: FLUoxetine HCL 20 MG CAPSULE PO SCH (12:00)
[2020-06-12] MEDS ORDERED: GABAPENTIN 300 MG CAPSULE PO SCH (14:00)
[2020-06-13] MEDS ORDERED: chlordiazePOXIDE HCL 25 MG CAPSULE PO SCH (05:00)
[2020-06-14] MEDS ORDERED: chlordiazePOXIDE HCL 10 MG CAPSULE PO PRN
[2020-06-14] MEDS ORDERED: chlordiazePOXIDE HCL 10 MG CAPSULE PO SCH (05:00)
[2020-06-15] MEDS ORDERED: chlordiazePOXIDE HCL 10 MG CAPSULE PO SCH (05:00)
[2020-06-16] MEDS ORDERED: chlordiazePOXIDE HCL 10 MG CAPSULE PO ONE (05:00)
== END 2020-06-12 14:37 | disposition left against medical advice (07) | DRG 894 ==
LOC: YASAS 17:42 → Y3N 21:12
PROVIDERS: ADMIT Allergy & Immunology; ATTEND Allergy & Immunology
PROC: HZ2ZZZZ Detoxification Services for Substance Abuse Treatment (ICD-10-PCS; principal; 2020-06-11)
DX: F11.23 Opioid dependence with withdrawal (principal); F14.20 Cocaine dependence, uncomplicated; F31.81 Bipolar II disorder; F19.282 Other psychoactive substance dependence with psychoactive substance-induced sleep disorder; F19.280 Other psychoactive substance dependence with psychoactive substance-induced anxiety disorder; F10.230 Alcohol dependence with withdrawal, uncomplicated; F12.20 Cannabis dependence, uncomplicated; F17.210 Nicotine dependence, cigarettes, uncomplicated; F19.24 Other psychoactive substance dependence with psychoactive substance-induced mood disorder; F90.9 Attention-deficit hyperactivity disorder, unspecified type; F43.10 Post-traumatic stress disorder, unspecified; M54.5 Low back pain; G89.29 Other chronic pain; G62.9 Polyneuropathy, unspecified; M79.7 Fibromyalgia; Z62.810 Personal history of physical and sexual abuse in childhood; Z86.69 Personal history of other diseases of the nervous system and sense organs; Z86.19 Personal history of other infectious and parasitic diseases; Z98.890 Other specified postprocedural states; Z91.5 Personal history of self-harm
CPT/HCPCS: 36415; 80053; 80178; 81025; 85025; 86780; C9803; J0475; J0735; U0003; U0005